=== PATIENT | female | born 1995 | race Hispanic/Latino ===

== ENCOUNTER 2024-04-22 15:57 | Emergency (ER) | payer BC ==
[~2024-04-22] VITALS: Ht 162.6 cm; Wt 81.6 kg
[2024-04-22 16:23] LABS: BASOPHILS # (AUTO) 0.03 K/uL (0.00-0.20); BASOPHILS % (AUTO) 0.3 % (0.0-5.0); EOSINOPHILS # (AUTO) 0.08 K/uL (0.00-0.70); EOSINOPHILS % (AUTO) 0.8 % (0.0-8.0); IMMATURE GRANULOCYTE ABSOLUTE 0.03 K/uL (0-1); LYMPHOCYTES # (AUTO) 2.6 K/uL (1.0-4.8); LYMPHOCYTES % (AUTO) 27.2 % (21.0-51.0); MEAN CORPUSCULAR HGB CONC 33.5 g/dL (32.0-36.0); MEAN CORPUSCULAR VOLUME 86.4 fL (79-99); MONOCYTES # (AUTO) 0.5 K/uL (0.1-1.0); MONOCYTES % (AUTO) 5.6 % (3.0-13.0); NEUTROPHILS # (AUTO) 6.3 K/uL (1.8-7.7); NEUTROPHILS % (AUTO) 65.8 % (40.0-77.0); PLATELET COUNT (AUTO) 283 K/uL (130-400); RED BLOOD CELL COUNT(AUTO) 4.28 MIL/uL (4.00-5.50); RED CELL DISTRIBUTION WIDTH 13.6 % (11.0-15.5); WHITE BLOOD COUNT (AUTO) 9.5 K/uL (4.8-10.8)
[2024-04-22 16:31] LABS: CREATININE 0.5 mg/dL (0.5-1.0); POTASSIUM 3.4 mmol/L (3.5-5.1)
--- NOTE | 2024-04-22 17:45 | ERN ---
General Chief Complaint: Vaginal Bleeding Stated Complaint: VAGINAL BLEEDING Time Seen by MD: 16:00 Time Seen by Midlevel: 16:00 Source: patient History of Present Illness Initial Comments Patient is a 28-year-old female with no significant past medical history presenting to the ER for evaluation of vaginal bleeding. Patient reports being approximately 13 weeks. She reports being a A1. She is followed by OBGYN Dr. Johnston in [facility]. Patient states she was at work when she began have vaginal bleeding. She called her OBGYN who recommended she report to the nearest ER for further evaluation. On arrival she states she has been bleeding for the last couple of hours. Allergies: Coded Allergies: No Known Drug Allergies (Unverified Allergy, Unknown, 04/22/24) Past Medical History Past Medical History: No Pertinent History Past Surgical History: Cholecystectomy, Other Surgical History Other: D&C ROS Dictation CONSTITUTIONAL: Negative except for HPI HEAD/FACE: Negative except for HPI EENT: Negative except for HPI RESPIRATORY: Negative except for HPI GASTROINTESTINAL/ABDOMINAL: Negative except for HPI GENITOURINARY: Negative except for HPI MUSCULOSKELETAL: Negative except for HPI INTEGUMENTARY: Negative except for HPI NEUROLOGICAL/PSYCH: Negative except for HPI HEMATOLOGIC/LYMPHATIC: Negative except for HPI All Systems Negative, Except as noted above. 13 point review of systems assessed and all negative except for above. Physical Exam Physical Exam Dictation Vital Signs reviewed General Appearance: Alert, oriented x 3, no acute distress, well developed, nourished. Head and Face: non-traumatic. Eyes: PERRL, pink conjunctivas, eyelid no trauma, anterior chamber with arcus senilis. Ears: Pinnas intact and no signs of trauma or erythema ear canals clear and no discharge TM no erythema Nose: No discharge, no bleeding. Oropharynx: Mouth normal, tongue pink, pharynx clear,no erythema, tonsils no exudates, no abscesses noted, mucous membrane moist Neck: Supple, non-tender, no thyromegaly, no masses, no JVD, no bruits Breast:Deferred Chest:No tenderness, no crepitus, no paradoxical movement, no retractions Lungs:Clear, well-ventilated, symmetric, no rales, no wheezing, no rhonchi, no stridor, good breath sounds bilaterally Heart: Regular rate, regular rhythm, no murmur, no gallops Vascular: no peripheral edema, Abdomen: Soft, positive bowel sounds, nondistended, no guarding, nontender, no rebound, no masses no hepatomegaly, no splenomegaly, no Dale's sign, no hernias. Rectal: Deferred Genital: Deferred Neurological: Normal speech, motor function intact, sensory function intact Musculoskeletal: Neck nontender, full range of motion, back nontender, full range of motion, Extremities: nontender, full range of motion Skin: Color pink, dry, no turgor, no rash, no lacerations, no abrasions, no contusions. Lymphatic: Deferred Results Laboratory and Microbiology Lab and Micro Result Laboratory Tests Test 04/22/24 16:12 White Blood Count 9.5 K/uL (4.8-10.8) Red Blood Count 4.28 MIL/uL (4.00-5.50) Hemoglobin 12.4 g/dL (12.0-16.0) Hematocrit 37.0 % (36-48) Mean Corpuscular Volume 86.4 fL (79-99) Mean Corpuscular Hemoglobin 29.0 pg (27.0-33.0) Mean Corpuscular Hemoglobin Concent 33.5 g/dL (32.0-36.0) Red Cell Distribution Width 13.6 % (11.0-15.5) Platelet Count 283 K/uL (130-400) Mean Platelet Volume 10.2 fL (7.5-10.5) Immature Granulocyte % (Auto) 0.3 % (0-1) Neutrophils (%) (Auto) 65.8 % (40.0-77.0) Lymphocytes (%) (Auto) 27.2 % (21.0-51.0) Monocytes (%) (Auto) 5.6 % (3.0-13.0) Eosinophils (%) (Auto) 0.8 % (0.0-8.0) Basophils (%) (Auto) 0.3 % (0.0-5.0) Neutrophils # (Auto) 6.3 K/uL (1.8-7.7) Lymphocytes # (Auto) 2.6 K/uL (1.0-4.8) Monocytes # (Auto) 0.5 K/uL (0.1-1.0) Eosinophils # (Auto) 0.08 K/uL (0.00-0.70) Basophils # (Auto) 0.03 K/uL (0.00-0.20) Absolute Immature Granulocyte (auto 0.03 K/uL (0-1) Nucleated Red Blood Cells 0.0 % (0.0-0.19) Sodium Level 132 mmol/L (136-145) L Potassium Level 3.4 mmol/L (3.5-5.1) L Chloride Level 96 mmol/L (101-111) L Carbon Dioxide Level 27 mmol/L (21-32) Blood Urea Nitrogen 7 mg/dL (7-18) Creatinine 0.5 mg/dL (0.5-1.0) Glomerular Filtration Rate Calc 132 mL/min (>90) Random Glucose 89 mg/dL (70-105) Total Calcium 9.2 mg/dL (8.5-10.1) Human Chorionic Gonadotropin, Quant 61958 mIU/mL (0-5) H Labs Reviewed?: Yes MDM MDM: Patient is a 28-year-old female with no significant past medical history presenting to the ER for evaluation of vaginal bleeding. Patient reports being approximately 13 weeks. She reports being a A1. She is followed by OBGYN Dr. Johnston in [facility]. Patient states she was at work when she began have vaginal bleeding. She called her OBGYN who recommended she report to the nearest ER for further evaluation. On arrival she states she has been bleeding for the last couple of hours. On physical examination patient is tearful. Her initial vital signs are stable. She has a normal blood pressure she is nontoxic appearing. She has gone through several pads. No blood clots are reported. The initial concern was that she was actively having a miscarriage so an ultrasound was ordered which reveals a single live intrauterine gestation in variable presentation and with a heart rate of 153 beats per minute. There was also another finding that she revealed a posterior grade 0 placenta without previa demonstrated, there was an 8.7 x 2.5 x 7.4 cm hematoma did not demonstrated against the anterior uterine wall that extends into the internal cervical os. This is most likely the cause of her bleeding. Patient is not actively miscarriage at this time. Copy of the ultrasound report along with her hCG quant was provided to the patient. She will be following up with her OBGYN tomorrow for further evaluation. Her blood work today was unremarkable. Her CBC does not show any evidence of infection in her chemistries [place] [address]. This was given to the patient so she can follow up with her OBGYN. At this time patient has remained stable during her entire stay in the ER she will be discharged home with supportive management. Return precautions discussed Differential diagnosis: Miscarriage, threatened , placenta abruption There are no social concerns with this patient. Prescription drug management Prescriptions will include: None Medical management and examination interpretation discussions were had by me with other qualified healthcare professionals as indicated for the patient's care. ED Course Orders Procedure Category Date Status Time Cbc With Differential LAB 04/22/24 Complete 15:58 Basic Metabolic Panel LAB 04/22/24 Complete 15:58 Hcg,Quantitative LAB 04/22/24 Complete 15:58 Us Ob <14 Weeks US 04/22/24 Resulted 16:16 Type And Screen BBK 04/22/24 Complete 16:08 Vital Signs Date Time Temp Pulse Resp B/P (MAP) Pulse Ox O2 Delivery O2 Flow Rate FiO2 04/22/24 18:27 98.1 85 16 121/60 99 Room Air* 0 21 04/22/24 16:06 98.1 85 16 143/92 99 Room Air 0 [place] [address] [address] IMAGING REPORT Signed PATIENT: RADHA SAEZ MR#: [id number] : 1995 SEX: F AGE: 28 LOCATION: [facility] ORDER 1621 STATUS: REG ER REPORT#: [id number] SERVICE 1616 REASON: vaginal bleeding approx 13 weeks ORDERING PHYSICIAN: MASSIEL BOYKIN PROCEDURE: OB <14 - US OB <14 WEEKS ULTRASOUND OB LIMITED INDICATION: Vaginal bleeding. TECHNIQUE: Real-time transabdominal approach ultrasound examination of the pelvis was performed by the loop cutter, and images subsequently made available for review. COMPARISON: None FINDINGS: Single live intrauterine gestation in variable presentation. heart rate = 153 beats per minute. Posterior grade 0 placenta without previa demonstrated, but 8.7 x 2.5 x 7.4 cm hematoma demonstrated against the anterior uterine wall, and extending to the internal cervical os. The amniotic fluid volume is normal at 9.3 cm. Estimated sonographic gestational age = 14 weeks 1 days +/- 8 days. Estimated weight = 89 grams +/- 13 grams. IMPRESSION: 1. Single live intrauterine gestation in variable presentation, and with heart rate of 153 bpm. 2. Posterior grade 0 placenta without previa demonstrated, but 8.7 x 2.5 x 7.4 cm hematoma demonstrated against the anterior uterine wall hematoma, and extending to the internal cervical os. DICTATED BY: ATIYA ORR MD DATE: 04/22/241739 ELECTRONICALLY SIGNED BY: ATIYA ORR MD DATE: 04/22/241745 DX & DISP Disposition: Discharge Departure Impression: Primary Impression: Vaginal bleeding Additional Impressions: Second trimester , Hematoma of uterus Condition: Stable Additional Instructions: Your blood work [place] [id number]. Your hemoglobin is stable. Your pelvic ultrasound shows a single live intrauterine gestation with a heart rate of 153 beats per minute. Your ultrasound also shows a posterior grade 0 placenta without previa however there was an 8.7 x 2.5 x 7.4 cm hematoma against the anterior uterine wall that extends into the internal cervical os. This is most likely the cause of your bleeding. Please go home and rest. My recommendation is that you have bedrest for the n ext couple of days and he can see your OBGYN. Avoid any sexual intercourse, heavy lifting, prolonged walking or standing, and any strenuous activity. Return to the ER for any new or worsening symptoms. Referrals: CICI PURVIS MD (PCP) ALEX ASHLEY Time of Disposition: 18:09 I have reviewed the case, and I agree with, Diagnosis and Plan MASSIEL BOYKIN Apr 22, 2024 17:45 MANUELA GONZALEZ DO Apr 24, 2024 08:23
[2024-04-22 18:27] VITALS: BP 121/60; PULSE 85; RESP 16; TEMP 98.1; O2SAT 99
== END 2024-04-22 18:35 | disposition home or self-care (01) ==
LOC: EDH 15:57
DX: O20.9 Hemorrhage in early pregnancy, unspecified (principal); O9A.211 Injury, poisoning and certain other consequences of external causes complicating pregnancy, first trimester; Z3A.13 13 weeks gestation of pregnancy; R10.2 Pelvic and perineal pain; Z90.49 Acquired absence of other specified parts of digestive tract; X58.XXXA Exposure to other specified factors, initial encounter; Y93.89 Activity, other specified; Y92.89 Other specified places as the place of occurrence of the external cause; Y99.8 Other external cause status
CPT/HCPCS: 36415; 76801; 80048; 84702; 85025; 86850; 86900; 86901